=== PATIENT | female | born 1975 | race Caucasian/White ===

== ENCOUNTER 2019-09-14 01:02 | Day surgery (SDC) | payer OTHER, SELFPAY ==
--- NOTE | 2019-09-09 15:26 | PM.IMHP ---
H&P: HPI History of Present Illness Chief complaint: Pelvic Pain/ Bilateral Ovarian Cyst Narrative: Patel Valencia is a 43 year old female 3 para 3 status post hysterectomy is admitted for laparoscopic bilateral salpingo-oophorectomy she has bilateral ovarian cyst and severe pelvic pain. Her pain at times is unrelenting and she has required narcotic pain medicine in light of this continued discomfort and she opted for removal of both ovaries. She understands this will make her permanently postmenopausal and that psychologic and physiologic changes that occur without were reviewed in great detail. Risks and benefits of this procedure reviewed including but not exclusive of , aspiration pneumonia, bleeding, transfusion, perforation injury to bowel, bladder, ureters, or other internal organs with need for open laparotomy. She was good understanding. She had all questions answered. She asked to proceed Review of Systems Review of Systems: All systems reviewed & are unremarkable except as noted in HPI and below Meds Home Medications and Allergies Allergies Allergy/AdvReac Type Severity Reaction Status Date / Time diphenhydramine Allergy Severe THROAT Verified 08/25/18 07:20 SWELLING/HIVES Exam Const: General: no acute distress Eyes: General: appearance normal, both eyes and all related structures Neck: Neck: supple and no JVD Thyroid: thyroid normal Resp: Effort & Inspection: normal respiratory effort Auscultation: clear to auscultation bilaterally Cardio: Rate: regular rate Rhythm: regular rhythm GI: Inspection: non-distended GI Palp: Yes Soft to palpation, No Tenderness to palpation present (GI) and No Guarding due to palpation present (GI) Auscultation: normal bowel sounds : General: Yes bladder normal to inspection External Female Exam: normal external appearance Speculum Exam - Vagina: normal appearance of the vagina Bimanual exam- vagina & uterus: uterus absent Bimanual Exam- Adnexa, other: tender Skin: General skin exam: no rashes or lesions noted Extrem: General: normal to inspection and no edema Psych: Mental Status: mental status grossly normal Affect: normal affect Assessment and Plan Additional Plan impression: Bilateral ovarian cysts Plan: Laparoscopic bilateral salpingo-oophorectomy
[2019-09-11 09:18] VITALS: BMI 33.3
[2019-09-14] VITALS (8 sets, daily range): BP systolic 108–130; BP diastolic 44–90; PULSE 52–84; RESP 9–21; TEMP 36.5–36.6; O2SAT 95–99
--- NOTE | 2019-09-14 06:38 | WPDHPUPDATE1 ---
History and Physical Update Update Date/Time: 09/14/19 06:38 History and Physical has been reviewed, including an updated exam of the patient. There are NO changes in the patient's condition. Risks, benefits, and alternatives have been discussed and questions answered. Patient agrees to proceed with procedure.
[2019-09-14] MEDS: LACTATED RINGERS 1,000 ML 30 ML IV CONT (09:15)
--- NOTE | 2019-09-14 09:30 | P.PNAN_ITS ---
Anes - Initial Pre Proc Eval Procedure: Operation Date: 09/14/19 10:15 Proposed Procedures p Laparoscopic Bilateral Salpingo-Oophorectomy - Mushtaq Iglesias MD Date/Time: 09/14/19 09:30 Surgeon: Mushtaq Iglesias MD Pre Op Diagnosis: Pelvic Pain/ Bilateral Ovarian Cyst Patient Data Age: 43 Gender: F Height: 5 ft 5 in Weight: 97 kg Last Vital Signs Temp 36.5 C 09/14/19 08:45 Pulse 73 09/14/19 08:45 Resp 16 09/14/19 08:45 BP 112/69 09/14/19 08:45 Pulse Ox 99 09/14/19 08:45 Allergies Allergy/AdvReac Type Severity Reaction Status Date / Time diphenhydramine Allergy Severe THROAT Verified 09/11/19 09:18 SWELLING/HIVES Home Medications Medication Instructions Recorded Confirmed Type levothyroxine 125 mcg PO DAILY 09/11/19 09/11/19 History hydrocodone-acetaminophen [[place]] 1 tablet PO Q4H PRN #30 tablet 09/14/19 Rx Patient hx anesthesia problems: none Family hx anesthesia problems: none [facility] Past Medical History Medical History (Updated 09/14/19 @ 09:31 by Mushtaq Ladd MD) Hypothyroidism Obesity Social History Social History Gender identity (if verbalized by the patient): Female Anes - Eval Final PreProcedure Day of Procedure 09/14/19 09:30 Patient weight: obese Heart: regular rate and rhythm Lungs: clear to auscultation Airway: Mallampati scale class 1 Neurological: alert and oriented Last oral intake: >/= 8 hours ASA classification: II Emergent: no Anesthetic plan: proceed Anesthesia type and monitoring: general ETT and standard monitoring Informed Consent: The patient's anesthetic plan and its attendant risks and benefits were discussed with the patient/family/POA. Questions were solicited and answers provided to the satisfaction of the patient/family/POA.
[2019-09-14] MEDS: KETOROLAC 30 MG/ML VIAL (*BKC) IV PUSH (10:43)
--- NOTE | 2019-09-14 10:50 | PM.PROC ---
Procedure Note - Detailed Date of procedure: 09/14/19 Pre-op diagnosis: Pelvic Pain/ Bilateral Ovarian Cyst Surgeon: Mushtaq Iglesias MD Postop diagnosis: Pelvic pain/bilateral ovarian cyst/adhesions Procedure: Laparoscopic bilateral oophorectomy/lysis of adhesions Anesthesia: General endotracheal EBL: 5cc Findings: Absent uterus and tubes multiple adhesions, bilateral ovarian cysts Complications: None Description of procedure: The patient was prepped draped in the normal sterile fashion placed in the dorsal lithotomy position. Under excellent general endotracheal anesthesia weighted speculum was placed in posterior fornix of vagina. Sponge stick was placed and the bladder drained of clear urine. Gloves were changed. A supraumbilical incision was made in the Veress needle passed in the abdomen. The abdomen was filled with CO2 gas [id number]. The 5mm trocar was advanced in the abdomen under direct visualization assuring no injury. Patient placed in Trendelenburg and a suprapubic incision made. The 5mm trocar advanced in the abdomen under direct visualization assuring no injury. The above findings were seen using sharp dissection omentum and bowel which was attached to the vaginal cough and bilateral ovarian cyst was sharply dissected till the infundibulopelvic structures could be skeletonized bilaterally. The right infundibulopelvic structure was clamped, burned, cut. The ovary was placed in the cul-de-sac. In like fashion the infundibulopelvic structure was skeletonized on the left. It was then clamped, burned, cut. The 2 ovaries were then placed in the Endo-Catch from left lower quadrant incision. Irrigation was undertaken to clear and hemostasis was assured. The lower sites were removed. The upper site was removed after gas had been removed from the abdomen. The incisions were closed with 4 O Monocryl and glue. The patient was awakened. She went to recovery in satisfactory condition. All sponge, needle, instrument counts were correct. There were no immediate complications
== END 2019-09-14 12:44 | disposition home or self-care (01) ==
PROVIDERS: Visit Provider Obstetrics & Gynecology
PROC: (CPT 49320; principal; 2019-09-14 10:15)
DX: N83.10 Corpus luteum cyst of ovary, unspecified side (principal); N73.6 Female pelvic peritoneal adhesions (postinfective); E03.9 Hypothyroidism, unspecified; E66.9 Obesity, unspecified; Z68.35 Body mass index [BMI] 35.0-35.9, adult
CPT/HCPCS: 58661; 36415; 86850; 86900; 86901; 88305; A9270; J0131; J1885; J2001; J2250; J2405; J3010; J7030; J7120